=== PATIENT | female | born 1970 | race American Indian/Alaskan Native ===

== ENCOUNTER 2021-07-29 11:16 | Inpatient (IN) | payer SELFPAY ==
--- NOTE | 2021-07-29 11:39 | Emergency Department Report ---
ED Chest Pain HPI - General Chief Complaint: Chest Pain Stated Complaint: Chest pain Time Seen by Provider: 07/29/21 11:23 Source: EMS Mode of arrival: Stretcher Limitations: No Limitations - History of Present Illness Initial Comments: 50-year-old female with no significant past medical history presents to the hospital complaining of left upper chest pain since 10 AM. Patient states the pain is a constant pressure worse with movement and deep inspiration. Positive associated shortness of breath and nausea without vomiting or diaphoresis. Patient has pain radiation to her back. At onset pain rated 8/10 intensity the pain is currently 4/10 intensity after receiving aspirin, nitroglycerin x2, and having a nitroglycerin paste placed on her chest wall by EMS. Patient is not smoke cigarettes and denies drug abuse including cocaine. Her brother had a heart attack at the age of 46. Her grandfather of a heart attack. She denies history of DVT/PE, control pill/hormone use, leg pain, or recent travel. Severity scale (0 -10): 4 - Related Data Allergies Allergy/AdvReac Type Severity Reaction Status Date / Time No Known Allergies Allergy Unverified 07/29/21 11:49 Heart Score - HEART Score History: Moderately suspicious EKG: Non-specific Age: 45-65 Risk factors: 1-2 risk factors Troponin: < normal limit HEART Score: 4 - EKG Read Time Time EKG Completed: 11:43 EKG Read Time: 11:49 ED Review of Systems ROS: Stated complaint: Chest pain Other details as noted in HPI Comment: All other systems reviewed and negative ED Physical Exam - General Limitations: No Limitations - Other Other exam information: General: No acute distress Head: Atraumatic Eyes: normal appearance ENT: Moist mucous membranes Neck: Normal appearance, no midline tenderness Chest: Clear to auscultation bilaterally, left upper chest wall nontender CV: Regular rate and rhythm Abdomen: Soft, normal bowel sounds, nontender, nondistended, no rebound or guar ding Back: Normal inspection Extremity: Normal inspection, full range of motion, no calf tenderness or leg edema Neuro: Alert O x 3, no facial asymmetry, speech clear, no gross motor sensory deficit Psych: Appropriate behavior Skin: No rash ED Course Vital Signs 07/29/21 07/29/21 11:17 11:32 Temperature 98.2 F 98.2 F Pulse Rate 87 77 Respiratory 16 16 Rate Blood Pressure 133/88 Blood Pressure 134/80 [Right] O2 Sat by Pulse 100 99 Oximetry - Reevaluation(s) Reevaluation #1: 07/29/21 13:46 pt does report feeling better, Nitro paste is still on chest wall OSIEL score - Osiel Score Age > 65: (0) No ED Medical Decision Making - Lab Data Result diagrams: 07/29/21 11:40 07/29/21 11:40 Lab Results 07/29/21 07/29/21 07/29/21 Range/Units 11:40 11:40 11:40 WBC 4.3 L (4.5-11.0) K/mm3 RBC 4.33 (3.65-5.03) M/mm3 Hgb 12.1 (10.1-14.3) gm/dl Hct 37.1 (30.3-42.9) % MCV 86 (79-97) fl MCH 28 (28-32) pg MCHC 33 (30-34) % RDW 12.7 L (13.2-15.2) % Plt Count 257 (140-440) K/mm3 Lymph % (Auto) 29.8 (13.4-35.0) % Hyde % (Auto) 10.6 H (0.0-7.3) % Eos % (Auto) 1.4 (0.0-4.3) % Baso % (Auto) 1.0 (0.0-1.8) % Lymph # (Auto) 1.3 (1.2-5.4) K/mm3 [place] # (Auto) 0.5 (0.0-0.8) K/mm3 Eos # (Auto) 0.1 (0.0-0.4) K/mm3 Baso # (Auto) 0.0 (0.0-0.1) K/mm3 Seg Neutrophils % 57.2 (40.0-70.0) % Seg Neutrophils # 2.4 (1.8-7.7) K/mm3 PT 13.1 (12.2-14.9) Sec. INR 0.89 (0.87-1.13) Sodium 137 (137-145) mmol/L Potassium 4.1 (3.6-5.0) mmol/L Chloride 100.6 (98-107) mmol/L Carbon Dioxide 26 (22-30) mmol/L Anion Gap 15 mmol/L BUN 9 (7-17) mg/dL Creatinine 0.6 (0.6-1.2) mg/dL Estimated GFR > 60 ml/min BUN/Creatinine Ratio 15 % Glucose 111 H (65-100) mg/dL Calcium 8.9 (8.4-10.2) mg/dL Total Bilirubin 0.30 (0.1-1.2) mg/dL AST 10 (5-40) units/L ALT 8 (7-56) units/L Alkaline Phosphatase 47 (35-129) units/L Troponin T 0.020 (0.00-0.029) ng/mL Total Protein 7.5 (6.3-8.2) g/dL Albumin 4.4 (3.9-5) g/dL Albumin/Globulin Ratio 1.4 % HCG, Qual (Negative) 07/29/21 Range/Units 11:40 WBC (4.5-11.0) K/mm3 RBC (3.65-5.03) M/mm3 Hgb (10.1-14.3) gm/dl Hct (30.3-42.9) % MCV (79-97) fl MCH (28-32) pg MCHC (30-34) % RDW (13.2-15.2) % Plt Count (140-440) K/mm3 Lymph % (Auto) (13.4-35.0) % Hyde % (Auto) (0.0-7.3) % Eos % (Auto) (0.0-4.3) % Baso % (Auto) (0.0-1.8) % Lymph # (Auto) (1.2-5.4) K/mm3 Hyde # (Auto) (0.0-0.8) K/mm3 Eos # (Auto) (0.0-0.4) K/mm3 Baso # (Auto) (0.0-0.1) K/mm3 Seg Neutrophils % (40.0-70.0) % Seg Neutrophils # (1.8-7.7) K/mm3 PT (12.2-14.9) Sec. INR (0.87-1.13) Sodium (137-145) mmol/L Potassium (3.6-5.0) mmol/L Chloride (98-107) mmol/L Carbon Dioxide (22-30) mmol/L Anion Gap mmol/L BUN (7-17) mg/dL Creatinine (0.6-1.2) mg/dL Estimated GFR ml/min BUN/Creatinine Ratio % Glucose (65-100) mg/dL Calcium (8.4-10.2) mg/dL Total Bilirubin (0.1-1.2) mg/dL AST (5-40) units/L ALT (7-56) units/L Alkaline Phosphatase (35-129) units/L Troponin T (0.00-0.029) ng/mL Total Protein (6.3-8.2) g/dL Albumin (3.9-5) g/dL Albumin/Globulin Ratio % HCG, Qual Negative (Negative) - EKG Data -: EKG Interpreted by Me EKG shows normal: sinus rhythm, intervals (Normal MI and QTc interval), QRS complexes (Normal QRS duration), ST-T waves (Nonspecific T wave abnormalities in anterior leads) Rate: normal - EKG Data When compared to previous EKG there are: previous EKG unavailable - Radiology Data Radiology results: report reviewed CHEST 1 VIEW INDICATION / CLINICAL INFORMATION: Chest Pain. FINDINGS: SUPPORT DEVICES: None. HEART / MEDIASTINUM: No significant abnormality. LUNGS / PLEURA: No significant pulmonary or pleural abnormality. No pn eumothorax. ADDITIONAL FINDINGS: Exam limited by overlying brassiere. IMPRESSION: 1. No acute findings. Critical care attestation.: If time is entered above; I have spent that time in minutes in the direct care of this critically ill patient, excluding procedure time. 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) Condition: Undetermined Instructions: Nonspecific Chest Pain, Adult Time of Disposition: 13:47 (admission dr Fernandez) Medical Decision Making - Lab Data Result Diagrams: 07/29/21 11:40 07/29/21 11:40 - MDM DVT Risk Factors: denies: Cast, Recent Orthopedic Procedure, Cancer, Recent Surgery-Other, Bedridden, Paralysis, Prior DVT/PE, Leg Swelling - PERC (PE Decision Criteria) Heart Rate < 100: (0) No O2 Sat on Room Air > .94%: (0) No No Prior History pf DVT/PE: (0) No No Recent Trauma or Surgery: (0) No Hemoptysis: (0) No No Exogenous Estrogen: (0) No No Clinical Signs Suggesting DVT: (0) No Age < 50: No
[2021-07-29 12:05] LABS: Eosinophils # (Auto) 0.1 K/mm3 (0.0-0.4); Eosinophils % (Auto) 1.4 % (0.0-4.3); Hematocrit 37.1 % (30.3-42.9); Hemoglobin 12.1 gm/dl (10.1-14.3); Lymphocytes # (Auto) 1.3 K/mm3 (1.2-5.4); Lymphocytes % (Auto) 29.8 % (13.4-35.0); Mean Corpuscular HGB Conc 33 % (30-34); Mean Corpuscular Volume 86 fl (79-97); Monocytes # (Auto) 0.5 K/mm3 (0.0-0.8); Monocytes % (Auto) 10.6 % (0.0-7.3); Platelet Count 257 K/mm3 (140-440); Red Blood Count 4.33 M/mm3 (3.65-5.03); Red Cell Distribution Width 12.7 % (13.2-15.2)
[2021-07-29 12:16] LABS: Alanine Aminotransferase 8 units/L (7-56); Albumin 4.4 g/dL (3.9-5); Blood Urea Nitrogen 9 mg/dL (7-17); Calcium 8.9 mg/dL (8.4-10.2); Hemolysis Index 8
[2021-07-29 12:17] LABS: INR 0.89 (0.87-1.13)
--- NOTE | 2021-07-29 12:20 | XRay Report ---
CHEST 1 VIEW INDICATION / CLINICAL INFORMATION: Chest Pain. FINDINGS: SUPPORT DEVICES: None. HEART / MEDIASTINUM: No significant abnormality. LUNGS / PLEURA: No significant pulmonary or pleural abnormality. No pneumothorax. ADDITIONAL FINDINGS: Exam limited by overlying brassiere. IMPRESSION: 1. No acute findings. Signer Name: Dao Noguera MD Signed: 07/29/2021 12:16 PM Workstation Name: [id number]
[2021-07-29 12:26] LABS: BUN/Creatinine Ratio 15
[2021-07-29 15:57] LABS: Chol/HDL Ratio 3.62 %
[2021-07-29] MEDS ORDERED: METOCLOPRAMIDE 10 MG/2 ML INJ IV PRN (16:58)
[2021-07-29] MEDS ORDERED: ACETAMINOPHEN 325 MG TAB PO PRN ×2 (16:58→20:23)
[2021-07-29] MEDS ORDERED: HYDROmorphone 1 MG/1 ML INJ IV PRN (16:58)
[2021-07-29] MEDS ORDERED: ONDANSETRON 4 MG/2 ML INJ IV PRN ×2 (16:58→20:23)
[2021-07-29] MEDS: oxyCODONE /ACETAMINOPHEN 5-325MG TAB PO PRN (18:47)
[2021-07-29] MEDS: HEPARIN 5,000 UNIT/1 ML VIAL SUB-Q SCH ×2 (21:39→23:26)
[2021-07-29] MEDS: FAMOTIDINE 20 MG/2 ML INJ IV SCH (21:39)
--- NOTE | 2021-07-30 07:10 | History and Physical Report ---
History of Present Illness Date of examination: 07/29/21 Date of admission: 07/29/21 13:47 Chief complaint: Chest pain since 10 AM History of present illness: 50-year-old female with no significant past medical history comes in for left- sided chest pain since 10 AM. Patient states her chest pain is about 4-6 on a scale of 1-10. Chest pain is retrosternal. Nonradiating. No diaphoresis. No shortness of breath. Initially chest pain was 8 on a scale of 1-10. Improved to 4/10 with nitroglycerin. Patient has a strong family history of coronary artery disease. Her and her brother has coronary artery disease with stent. Also her grandfather has history of OH in the past. Patient is not on any medications. Past History Past Medical History: No medical history Past Surgical History: No surgical history Social history: lives with family, full code Family history: CAD, hypertension Review of Systems ROS: Constitutional no weight loss or weight gain no fever or chills HEENT no sore throat no post nasal drip no diplopia Neck no neck stiffness no lymph gland enlargement Chest and lungs no shortness of breath cough or wheezing CVS no chest pain no diaphoresis no palpitations GI no nausea no vomiting no diarrhea Genitourinary system no dysuria no flank pain Musculoskeletal system no muscle pains no joint pains [employer] no syncope no seizures Skin no rash no itching Psychiatric no depression no homicidal or suicidal tendencies Hematologic no lymphedema or bruising Endocrine no polydipsia no polyuria no cold intolerance no heat intolerance Past History Social history: full code Medications and Allergies Allergies Allergy/AdvReac Type Severity Reaction Status Date / Time No Known Allergies Allergy Unverified 07/29/21 11:49 Home Medications Medication Instructions Recorded Confirmed Last Taken Type No Known Home Medications [No 07/29/21 07/29/21 Unknown History Reported Home Medications] Active Meds: Active Medications Acetaminophen (Acetaminophen 325 Mg Tab) 650 mg PO Q4H PRN PRN Reason: Pain MILD(1-3)/Fever >100.5/CHO Last Admin: 07/29/21 17:12 Dose: 650 mg Documented by: Famotidine (Famotidine 20 Mg/2 Ml Inj) 20 mg IV BID MOHSEN Last Admin: 07/29/21 21:39 Dose: Not Given Documented by: Heparin Sodium (Porcine) (Heparin 5,000 Unit/1 Ml Vial) 5,000 unit SUB-Q Q12HR [facility] Last Admin: 07/29/21 23:26 Dose: 5,000 unit Documented by: Hydromorphone HCl (Hydromorphone 1 Mg/1 Ml Inj) 0.5 mg IV Q3H PRN PRN Reason: Pain , Severe (7-10) Metoclopramide HCl (Metoclopramide 10 Mg/2 Ml Inj) 10 mg IV Q6H PRN PRN Reason: Nausea And Vomiting Ondansetron HCl (Ondansetron 4 Mg/2 Ml Inj) 4 mg IV Q8H PRN PRN Reason: Nausea And Vomiting Oxycodone/Acetaminophen (Oxycodone /Acetaminophen 5-325mg Tab) 1 tab PO Q6H PRN PRN Reason: Pain, Moderate (4-6) Last Admin: 07/29/21 18:47 Dose: 1 tab Documented by: Sodium Chloride (Sodium Chloride 0.9% 10 Ml Flush Syringe) 10 ml IV BID [facility] Last Admin: 07/29/21 21:41 Dose: Not Given Documented by: Sodium Chloride (Sodium Chloride 0.9% 10 Ml Flush Syringe) 10 ml IV PRN PRN PRN Reason: LINE FLUSH Sodium Chloride (Sodium Chloride 0.9% 10 Ml Flush Syringe) 10 ml IV BID [facility] Last Admin: 07/29/21 21:42 Dose: Not Given Documented by: Exam - Constitutional Vitals: Temp Pulse Resp BP Pulse Ox 98.6 F 94 H 12 108/73 98 07/30/21 03:38 07/30/21 03:38 07/30/21 03:38 07/30/21 03:38 07/30/21 03:38 General appearance: Present: no acute distress, well-nourished - EENT Eyes: Present: PERRL ENT: hearing intact, clear oral mucosa - Neck Neck: Present: supple, normal ROM - Respiratory Respiratory effort: normal Respiratory: bilateral: CTA - Cardiovascular Heart rate: 78 Rhythm: regular Heart Sounds: Present: S1 & S2. Absent: rub, click - Extremities Extremities: pulses symmetrical, No edema Peripheral Pulses: within normal limits - Abdominal General gastrointestinal: Present: soft, non-tender, non-distended, normal bowel sounds Female genitourinary: Present: normal - Integumentary Integumentary: Present: clear, warm, dry - Musculoskeletal Musculoskeletal: gait normal, strength equal bilaterally - Psychiatric Psychiatric: appropriate mood/affect, intact judgment & insight - Neurologic Neurologic: CNII-XII intact, moves all extremities HEART Score - HEART Score EKG: Non-specific Age: 45-65 Risk factors: 1-2 risk factors Troponin: Troponin T 0.189 ng/mL (0.00-0.029) H* D 07/29/21 23:03 Troponin: < normal limit - Critical Actions Critical Actions: 4-6 pts:12-16.6% risk of adverse cardiac event. Should be admitted Results - Labs CBC & Chem 7: 07/29/21 11:40 07/29/21 11:40 Labs: Laboratory Last Values WBC 4.3 K/mm3 (4.5-11.0) L 07/29/21 11:40 RBC 4.33 M/mm3 (3.65-5.03) 07/29/21 11:40 Hgb 12.1 gm/dl (10.1-14.3) 07/29/21 11:40 Hct 37.1 % (30.3-42.9) 07/29/21 11:40 MCV 86 fl (79-97) 07/29/21 11:40 MCH 28 pg (28-32) 07/29/21 11:40 MCHC 33 % (30-34) 07/29/21 11:40 RDW 12.7 % (13.2-15.2) L 07/29/21 11:40 Plt Count 257 K/mm3 (140-440) 07/29/21 11:40 Lymph % (Auto) 29.8 % (13.4-35.0) 07/29/21 11:40 [place] % (Auto) 10.6 % (0.0-7.3) H 07/29/21 11:40 Eos % (Auto) 1.4 % (0.0-4.3) 07/29/21 11:40 Baso % (Auto) 1.0 % (0.0-1.8) 07/29/21 11:40 Lymph # (Auto) 1.3 K/mm3 (1.2-5.4) 07/29/21 11:40 [place] # (Auto) 0.5 K/mm3 (0.0-0.8) 07/29/21 11:40 Eos # (Auto) 0.1 K/mm3 (0.0-0.4) 07/29/21 11:40 Baso # (Auto) 0.0 K/mm3 (0.0-0.1) 07/29/21 11:40 Seg Neutrophils % 57.2 % (40.0-70.0) 07/29/21 11:40 Seg Neutrophils # 2.4 K/mm3 (1.8-7.7) 07/29/21 11:40 PT 13.1 Sec. (12.2-14.9) 07/29/21 11:40 INR 0.89 (0.87-1.13) 07/29/21 11:40 Sodium 137 mmol/L (137-145) 07/29/21 11:40 Potassium 4.1 mmol/L (3.6-5.0) 07/29/21 11:40 Chloride 100.6 mmol/L (98-107) 07/29/21 11:40 Carbon Dioxide 26 mmol/L (22-30) 07/29/21 11:40 Anion Gap 15 mmol/L 07/29/21 11:40 BUN 9 mg/dL (7-17) 07/29/21 11:40 Creatinine 0.6 mg/dL (0.6-1.2) 07/29/21 11:40 Estimated GFR > 60 ml/min 07/29/21 11:40 BUN/Creatinine Ratio 15 % 07/29/21 11:40 Glucose 111 mg/dL (65-100) H 07/29/21 11:40 Calcium 8.9 mg/dL (8.4-10.2) 07/29/21 11:40 Total Bilirubin 0.30 mg/dL (0.1-1.2) 07/29/21 11:40 AST 10 units/L (5-40) 07/29/21 11:40 ALT 8 units/L (7-56) 07/29/21 11:40 Alkaline Phosphatase 47 units/L (35-129) 07/29/21 11:40 Troponin T 0.189 ng/mL (0.00-0.029) H* D 07/29/21 23:03 Total Protein 7.5 g/dL (6.3-8.2) 07/29/21 11:40 Albumin 4.4 g/dL (3.9-5) 07/29/21 11:40 Albumin/Globulin Ratio 1.4 % 07/29/21 11:40 Triglycerides 77 mg/dL (2-149) 07/29/21 14:48 Cholesterol 192 mg/dL (50-199) 07/29/21 14:48 LDL Cholesterol Direct 125 mg/dL (50-130) 07/29/21 14:48 HDL Cholesterol 53 mg/dL (40-59) 07/29/21 14:48 Cholesterol/HDL Ratio 3.62 % 07/29/21 14:48 HCG, Qual Negative (Negative) 07/29/21 11:40 Short CBC 07/29/21 Range/Units 11:40 WBC 4.3 L (4.5-11.0) K/mm3 Hgb 12.1 (10.1-14.3) gm/dl Hct 37.1 (30.3-42.9) % Plt Count 257 (140-440) K/mm3 BMP 07/29/21 11:40 Sodium 137 Potassium 4.1 Chloride 100.6 Carbon Dioxide 26 BUN 9 Creatinine 0.6 Glucose 111 H Calcium 8.9 Cardiac Enzymes 07/29/21 07/29/21 07/29/21 Range/Units 11:40 14:48 17:52 Troponin T 0.020 0.279 H* D 0.265 H* (0.00-0.029) ng/mL 07/29/21 Range/Units 23:03 Troponin T 0.189 H* D (0.00-0.029) ng/mL Liver Function 07/29/21 Range/Units 11:40 Total Bilirubin 0.30 (0.1-1.2) mg/dL AST 10 (5-40) units/L ALT 8 (7-56) units/L Alkaline Phosphatase 47 (35-129) units/L Albumin 4.4 (3.9-5) g/dL - Imaging and Cardiology EKG: report reviewed Chest x-ray: report reviewed (No acute findings) Imaging and Cardiology: EKG Sinus rhythm Heart rate of 69/min Nonspecific T wave abnormalities in the anterior leads. Assessment and Plan Advance Directives: Yes (Full code) VTE prophylaxis?: Chemical Plan of care discussed with patient/family: Yes - Patient Problems (1) Acute coronary syndrome Current Visit: Yes Status: Acute Plan to address problem: Serial troponins Lexiscan in the morning GERD and costochondritis in the differential diagnosis (2) DVT prophylaxis Current Visit: Yes Status: Acute Plan to address problem: On heparin and GI prophylaxis (3) Advance directive discussed with patient Current Visit: Yes Status: Acute Plan to address problem: Disease education conducted: Care plan discussed, prognosis discussed, patient is full code and patient acknowledges understanding and agrees with care plan. +30 minutes.
[2021-07-30] MEDS ORDERED: REGADENOSON 0.4 MG/5 ML INJ IV ONE (08:05)
[2021-07-30] MEDS: HEPARIN 5,000 UNIT/1 ML VIAL SUB-Q SCH ×2 (09:21→22:31)
[2021-07-30 09:23] LABS: Basophils % (Auto) 0.7 % (0.0-1.8); Eosinophils # (Auto) 0.1 K/mm3 (0.0-0.4); Eosinophils % (Auto) 1.2 % (0.0-4.3); Hematocrit 36.6 % (30.3-42.9); Hemoglobin 11.9 gm/dl (10.1-14.3); Lymphocytes # (Auto) 1.7 K/mm3 (1.2-5.4); Lymphocytes % (Auto) 27.6 % (13.4-35.0); Mean Corpuscular HGB Conc 32 % (30-34); Mean Corpuscular Volume 85 fl (79-97); Monocytes # (Auto) 0.7 K/mm3 (0.0-0.8); Monocytes % (Auto) 10.7 % (0.0-7.3); Platelet Count 246 K/mm3 (140-440); Red Blood Count 4.29 M/mm3 (3.65-5.03)
[2021-07-30] MEDS: FAMOTIDINE 20 MG/2 ML INJ IV SCH (09:23)
--- NOTE | 2021-07-30 09:51 | Consultation ---
History of Present Illness Consult date: 07/30/21 Consult reason: chest pain History of present illness: Impression SSCP, intetmittent dating back to last week c/w angina Troponin elevation c/w CAD, NSTEMI ECG NSR nonspecific inferior and lateral changes, minimal FH CAD, brother recently had stents LDL 125 Plan cancelled stress test advise diagnostic cardiac cath to evaluate symptoms, based on presentation high prob for CAD. ASA, statin, BB for now, she is asymptomatic at present Past History Past Medical History: No medical history Past Surgical History: No surgical history Social history: full code. denies: smoking Family history: CAD, hypertension Medications and Allergies Allergies Allergy/AdvReac Type Severity Reaction Status Date / Time No Known Allergies Allergy Unverified 07/29/21 11:49 Home Medications Medication Instructions Recorded Confirmed Last Taken Type No Known Home Medications [No 07/29/21 07/29/21 Unknown History Reported Home Medications] Active Meds: Active Medications Acetaminophen (Acetaminophen 325 Mg Tab) 650 mg PO Q4H PRN PRN Reason: Pain MILD(1-3)/Fever >100.5/CHO Last Admin: 07/29/21 17:12 Dose: 650 mg Documented by: Famotidine (Famotidine 20 Mg/2 Ml Inj) 20 mg IV BID [facility] Last Admin: 07/30/21 09:23 Dose: Not Given Documented by: Heparin Sodium (Porcine) (Heparin 5,000 Unit/1 Ml Vial) 5,000 unit SUB-Q Q12HR [facility] Last Admin: 07/30/21 09:21 Dose: 5,000 unit Documented by: Hydromorphone HCl (Hydromorphone 1 Mg/1 Ml Inj) 0.5 mg IV Q3H PRN PRN Reason: Pain , Severe (7-10) Metoclopramide HCl (Metoclopramide 10 Mg/2 Ml Inj) 10 mg IV Q6H PRN PRN Reason: Nausea And Vomiting Ondansetron HCl (Ondansetron 4 Mg/2 Ml Inj) 4 mg IV Q8H PRN PRN Reason: Nausea And Vomiting Oxycodone/Acetaminophen (Oxycodone /Acetaminophen 5-325mg Tab) 1 tab PO Q6H PRN PRN Reason: Pain, Moderate (4-6) Last Admin: 07/29/21 18:47 Dose: 1 tab Documented by: Sodium Chloride (Sodium Chloride 0.9% 10 Ml Flush Syringe) 10 ml IV PRN PRN PRN Reason: LINE FLUSH Sodium Chloride (Sodium Chloride 0.9% 10 Ml Flush Syringe) 10 ml IV BID [facility] Last Admin: 07/30/21 09:23 Dose: Not Given Documented by: Physical Examination Vital Signs Temp Pulse Resp BP Pulse Ox 98.2 F 87 16 134/80 100 07/29/21 11:17 07/29/21 11:17 07/29/21 11:17 07/29/21 11:17 07/29/21 11:17 General appearance: no acute distress HEENT: Positive: PERRL Neck: Positive: neck supple Cardiac: Positive: Reg Rate and Rhythm, S1/S2 Lungs: Positive: Normal Exam Neuro: Positive: Grossly Intact Abdomen: Positive: Unremarkable. Negative: Pulsations/Bruits Extremities: Absent: edema Results 07/30/21 08:57 07/29/21 11:40 Cardiac Enzymes 07/29/21 Range/Units 11:40 AST 10 (5-40) units/L Coagulation 07/29/21 Range/Units 11:40 PT 13.1 (12.2-14.9) Sec. INR 0.89 (0.87-1.13) Lipids 07/29/21 Range/Units 14:48 Triglycerides 77 (2-149) mg/dL Cholesterol 192 (50-199) mg/dL HDL Cholesterol 53 (40-59) mg/dL Cholesterol/HDL Ratio 3.62 % CBC 07/29/21 07/30/21 Range/Units 11:40 08:57 WBC 4.3 L 6.3 (4.5-11.0) K/mm3 RBC 4.33 4.29 (3.65-5.03) M/mm3 Hgb 12.1 11.9 (10.1-14.3) gm/dl Hct 37.1 36.6 (30.3-42.9) % Plt Count 257 246 (140-440) K/mm3 Lymph # (Auto) 1.3 1.7 (1.2-5.4) K/mm3 [place] # (Auto) 0.5 0.7 (0.0-0.8) K/mm3 Eos # (Auto) 0.1 0.1 (0.0-0.4) K/mm3 Baso # (Auto) 0.0 0.0 (0.0-0.1) K/mm3 Comprehensive Metabolic Panel 07/29/21 Range/Units 11:40 Sodium 137 (137-145) mmol/L Potassium 4.1 (3.6-5.0) mmol/L Chloride 100.6 (98-107) mmol/L Carbon Dioxide 26 (22-30) mmol/L BUN 9 (7-17) mg/dL Creatinine 0.6 (0.6-1.2) mg/dL Glucose 111 H (65-100) mg/dL Calcium 8.9 (8.4-10.2) mg/dL AST 10 (5-40) units/L ALT 8 (7-56) units/L Alkaline Phosphatase 47 (35-129) units/L Total Protein 7.5 (6.3-8.2) g/dL Albumin 4.4 (3.9-5) g/dL EKG interpretations - Telemetry EKG Rhythm: Sinus Rhythm Repolarization changes or abnormalities: nonspecific abnormality, ST segment, and/or T wave
[2021-07-30] MEDS: ASPIRIN 81 MG TAB CHEW PO SCH (10:18)
[2021-07-30] MEDS: METOPROLOL SUCCINATE XL 25 MG TAB PO SCH (10:18)
[2021-07-30 10:34] LABS: Alanine Aminotransferase 8 units/L (7-56); Blood Urea Nitrogen 7 mg/dL (7-17); Calcium 8.9 mg/dL (8.4-10.2); Hemolysis Index 8
[2021-07-30 10:48] LABS: BUN/Creatinine Ratio 12
--- NOTE | 2021-07-30 11:44 | Progress Note ---
Assessment and Plan Assessment and plan: #NSTEMI #Elevated troponin -troponin 0.279 -> 0.265 -> 0.189; downtrending -ASA + atorvastatin and metoprolol 25mg BID -lipid panel & A1C ordered -TTE pending -Cardiology consulted, assistance appreciated -plan for Cath on Monday Disposition Plan: Home Total Time Spent with Patient (Minutes): 20 minutes History Interval history: No acute events overnight. Patient reports that chest pain has resolved. No complaints at this time. Hospitalist Physical - Physical exam Narrative exam: GENERAL: Well-developed well-nourished. Sitting up in bed, no acute distress. HEENT: Normocephalic. Atraumatic. CHEST/LUNGS: CTAB on room air HEART/CARDIOVASCULAR: RRR. No murmur, rubs or gallops appreciated. ABDOMEN: +BS. NT/ND. SKIN: No rashes noted. NEURO: No focal motor deficit. Follows all commands. EXTREMITIES: No cyanosis, clubbing or edema. PSYCH: Cooperative. - Constitutional Vitals: Temp Pulse Resp BP Pulse Ox 98.6 F 92 H 20 102/66 93 07/30/21 08:01 07/30/21 10:11 07/30/21 08:01 07/30/21 08:01 07/30/21 08:01 General appearance: Present: no acute distress HEART Score - HEART Score EKG: Non-specific Age: 45-65 Risk factors: 1-2 risk factors Troponin: Troponin T 0.198 ng/mL (0.00-0.029) H* 07/30/21 08:57 Troponin: < normal limit - Critical Actions Critical Actions: 4-6 pts:12-16.6% risk of adverse cardiac event. Should be admitted Results - Labs CBC & Chem 7: 07/30/21 08:57 07/30/21 08:57 Labs: Laboratory Last Values WBC 6.3 K/mm3 (4.5-11.0) 07/30/21 08:57 RBC 4.29 M/mm3 (3.65-5.03) 07/30/21 08:57 Hgb 11.9 gm/dl (10.1-14.3) 07/30/21 08:57 Hct 36.6 % (30.3-42.9) 07/30/21 08:57 MCV 85 fl (79-97) 07/30/21 08:57 MCH 28 pg (28-32) 07/30/21 08:57 MCHC 32 % (30-34) 07/30/21 08:57 RDW 13.0 % (13.2-15.2) L 07/30/21 08:57 Plt Count 246 K/mm3 (140-440) 07/30/21 08:57 Lymph % (Auto) 27.6 % (13.4-35.0) 07/30/21 08:57 [place] % (Auto) 10.7 % (0.0-7.3) H 07/30/21 08:57 Eos % (Auto) 1.2 % (0.0-4.3) 07/30/21 08:57 Baso % (Auto) 0.7 % (0.0-1.8) 07/30/21 08:57 Lymph # (Auto) 1.7 K/mm3 (1.2-5.4) 07/30/21 08:57 [place] # (Auto) 0.7 K/mm3 (0.0-0.8) 07/30/21 08:57 Eos # (Auto) 0.1 K/mm3 (0.0-0.4) 07/30/21 08:57 Baso # (Auto) 0.0 K/mm3 (0.0-0.1) 07/30/21 08:57 Seg Neutrophils % 59.8 % (40.0-70.0) 07/30/21 08:57 Seg Neutrophils # 3.8 K/mm3 (1.8-7.7) 07/30/21 08:57 PT 13.1 Sec. (12.2-14.9) 07/29/21 11:40 INR 0.89 (0.87-1.13) 07/29/21 11:40 Sodium 136 mmol/L (137-145) L 07/30/21 08:57 Potassium 4.1 mmol/L (3.6-5.0) 07/30/21 08:57 Chloride 100.4 mmol/L (98-107) 07/30/21 08:57 Carbon Dioxide 23 mmol/L (22-30) 07/30/21 08:57 Anion Gap 17 mmol/L 07/30/21 08:57 BUN 7 mg/dL (7-17) 07/30/21 08:57 Creatinine 0.6 mg/dL (0.6-1.2) 07/30/21 08:57 Estimated GFR > 60 ml/min 07/30/21 08:57 BUN/Creatinine Ratio 12 % 07/30/21 08:57 Glucose 89 mg/dL (65-100) 07/30/21 08:57 Calcium 8.9 mg/dL (8.4-10.2) 07/30/21 08:57 Total Bilirubin 0.40 mg/dL (0.1-1.2) 07/30/21 08:57 AST 20 units/L (5-40) 07/30/21 08:57 ALT 8 units/L (7-56) 07/30/21 08:57 Alkaline Phosphatase 45 units/L (35-129) 07/30/21 08:57 Troponin T 0.198 ng/mL (0.00-0.029) H* 07/30/21 08:57 Total Protein 7.1 g/dL (6.3-8.2) 07/30/21 08:57 Albumin 4.0 g/dL (3.9-5) 07/30/21 08:57 Albumin/Globulin Ratio 1.3 % 07/30/21 08:57 Triglycerides 77 mg/dL (2-149) 07/29/21 14:48 Cholesterol 192 mg/dL (50-199) 07/29/21 14:48 LDL Cholesterol Direct 125 mg/dL (50-130) 07/29/21 14:48 HDL Cholesterol 53 mg/dL (40-59) 07/29/21 14:48 Cholesterol/HDL Ratio 3.62 % 07/29/21 14:48 HCG, Qual Negative (Negative) 07/29/21 11:40 Active Medications - Current Medications Current Medications: Generic Name Dose Route Start Last Admin Trade Name Freq PRN Reason Stop Dose Admin Acetaminophen 650 mg 07/29/21 16:58 07/29/21 17:12 Acetaminophen 325 Mg Tab PO 650 mg Q4H PRN Administration Pain MILD(1-3)/Fever >100.5/CHO Aspirin 81 mg 07/30/21 10:00 07/30/21 10:18 Aspirin 81 Mg Tab Chew PO 81 mg QDAY MOHSEN Administration Atorvastatin Calcium 40 mg 07/30/21 22:00 Atorvastatin 40 Mg Tab PO QHS MOHSEN Famotidine 20 mg 07/29/21 22:00 07/30/21 09:23 Famotidine 20 Mg/2 Ml Inj IV Not Given BID [facility] Heparin Sodium (Porcine) 5,000 unit 07/29/21 22:00 07/30/21 09:21 Heparin 5,000 Unit/1 Ml Vial SUB-Q 5,000 unit Q12HR [facility] Administration Hydromorphone HCl 0.5 mg 07/29/21 16:58 Hydromorphone 1 Mg/1 Ml Inj IV Q3H PRN Pain , Severe (7-10) Metoclopramide HCl 10 mg 07/29/21 16:58 Metoclopramide 10 Mg/2 Ml Inj IV Q6H PRN Nausea And Vomiting Metoprolol Succinate 25 mg 07/30/21 10:00 07/30/21 10:18 Metoprolol Succinate Xl 25 Mg Tab PO 25 mg QDAY [facility] Administration Ondansetron HCl 4 mg 07/29/21 16:58 Ondansetron 4 Mg/2 Ml Inj IV Q8H PRN Nausea And Vomiting Oxycodone/Acetaminophen 1 tab 07/29/21 16:58 07/29/21 18:47 Oxycodone /Acetaminophen 5-325mg Tab PO 1 tab Q6H PRN Administration Pain, Moderate (4-6) Sodium Chloride 10 ml 07/29/21 16:58 Sodium Chloride 0.9% 10 Ml Flush Syringe IV PRN PRN LINE FLUSH Sodium Chloride 10 ml 07/29/21 22:00 07/30/21 09:23 Sodium Chloride 0.9% 10 Ml Flush Syringe IV Not Given BID [facility]
[2021-07-30] MEDS: FAMOTIDINE 20 MG TAB PO SCH (22:31)
--- NOTE | 2021-07-31 08:11 | Progress Note ---
Assessment and Plan Assessment and plan: #NSTEMI #Elevated troponin -troponin 0.279 -> 0.265 -> 0.189 -ASA + atorvastatin and metoprolol 25mg BID -lipid panel & A1C ordered -TTE: LVEF 60%, small segmental apical inferoseptal hypokinesis -Cardiology following, assistance appreciated -plan for Cath on Monday Disposition Plan: continue medical management Total Time Spent with Patient (Minutes): 20 minutes History Interval history: No acute events overnight. Not having chest pain. Hospitalist Physical - Physical exam Narrative exam: GENERAL: Well-developed well-nourished. Sitting up in bed, no acute distress. CHEST/LUNGS: CTAB on room air HEART/CARDIOVASCULAR: RRR. No murmur, rubs or gallops appreciated. ABDOMEN: +BS. NT/ND. SKIN: No rashes noted. NEURO: No focal motor deficit. Follows all commands. EXTREMITIES: No cyanosis, clubbing or edema. PSYCH: Cooperative. - Constitutional Vitals: Temp Pulse Resp BP Pulse Ox 97.9 F 77 16 119/73 97 07/31/21 03:39 07/31/21 03:39 07/31/21 03:39 07/31/21 03:39 07/31/21 03:39 General appearance: Present: no acute distress HEART Score - HEART Score EKG: Non-specific Age: 45-65 Risk factors: 1-2 risk factors Troponin: Troponin T 0.198 ng/mL (0.00-0.029) H* 07/30/21 08:57 Troponin: < normal limit - Critical Actions Critical Actions: 4-6 pts:12-16.6% risk of adverse cardiac event. Should be admitted Results - Labs CBC & Chem 7: 07/30/21 08:57 07/30/21 08:57 Labs: Laboratory Last Values WBC 6.3 K/mm3 (4.5-11.0) 07/30/21 08:57 RBC 4.29 M/mm3 (3.65-5.03) 07/30/21 08:57 Hgb 11.9 gm/dl (10.1-14.3) 07/30/21 08:57 Hct 36.6 % (30.3-42.9) 07/30/21 08:57 MCV 85 fl (79-97) 07/30/21 08:57 MCH 28 pg (28-32) 07/30/21 08:57 MCHC 32 % (30-34) 07/30/21 08:57 RDW 13.0 % (13.2-15.2) L 07/30/21 08:57 Plt Count 246 K/mm3 (140-440) 07/30/21 08:57 Lymph % (Auto) 27.6 % (13.4-35.0) 07/30/21 08:57 [place] % (Auto) 10.7 % (0.0-7.3) H 07/30/21 08:57 Eos % (Auto) 1.2 % (0.0-4.3) 07/30/21 08:57 Baso % (Auto) 0.7 % (0.0-1.8) 07/30/21 08:57 Lymph # (Auto) 1.7 K/mm3 (1.2-5.4) 07/30/21 08:57 [place] # (Auto) 0.7 K/mm3 (0.0-0.8) 07/30/21 08:57 Eos # (Auto) 0.1 K/mm3 (0.0-0.4) 07/30/21 08:57 Baso # (Auto) 0.0 K/mm3 (0.0-0.1) 07/30/21 08:57 Seg Neutrophils % 59.8 % (40.0-70.0) 07/30/21 08:57 Seg Neutrophils # 3.8 K/mm3 (1.8-7.7) 07/30/21 08:57 PT 13.1 Sec. (12.2-14.9) 07/29/21 11:40 INR 0.89 (0.87-1.13) 07/29/21 11:40 Sodium 136 mmol/L (137-145) L 07/30/21 08:57 Potassium 4.1 mmol/L (3.6-5.0) 07/30/21 08:57 Chloride 100.4 mmol/L (98-107) 07/30/21 08:57 Carbon Dioxide 23 mmol/L (22-30) 07/30/21 08:57 Anion Gap 17 mmol/L 07/30/21 08:57 BUN 7 mg/dL (7-17) 07/30/21 08:57 Creatinine 0.6 mg/dL (0.6-1.2) 07/30/21 08:57 Estimated GFR > 60 ml/min 07/30/21 08:57 BUN/Creatinine Ratio 12 % 07/30/21 08:57 Glucose 89 mg/dL (65-100) 07/30/21 08:57 Calcium 8.9 mg/dL (8.4-10.2) 07/30/21 08:57 Total Bilirubin 0.40 mg/dL (0.1-1.2) 07/30/21 08:57 AST 20 units/L (5-40) 07/30/21 08:57 ALT 8 units/L (7-56) 07/30/21 08:57 Alkaline Phosphatase 45 units/L (35-129) 07/30/21 08:57 Troponin T 0.198 ng/mL (0.00-0.029) H* 07/30/21 08:57 Total Protein 7.1 g/dL (6.3-8.2) 07/30/21 08:57 Albumin 4.0 g/dL (3.9-5) 07/30/21 08:57 Albumin/Globulin Ratio 1.3 % 07/30/21 08:57 Triglycerides 77 mg/dL (2-149) 07/29/21 14:48 Cholesterol 192 mg/dL (50-199) 07/29/21 14:48 LDL Cholesterol Direct 125 mg/dL (50-130) 07/29/21 14:48 HDL Cholesterol 53 mg/dL (40-59) 07/29/21 14:48 Cholesterol/HDL Ratio 3.62 % 07/29/21 14:48 HCG, Qual Negative (Negative) 07/29/21 11:40 [place]/IV: Voiding Method Toilet Active Medications - Current Medications Current Medications: Generic Name Dose Route Start Last Admin Trade Name Freq PRN Reason Stop Dose Admin Acetaminophen 650 mg 07/29/21 16:58 07/29/21 17:12 Acetaminophen 325 Mg Tab PO 650 mg Q4H PRN Administration Pain MILD(1-3)/Fever >100.5/CHO Aspirin 81 mg 07/30/21 10:00 07/30/21 10:18 Aspirin 81 Mg Tab Chew PO 81 mg QDAY MOHSEN Administration Atorvastatin Calcium 40 mg 07/30/21 22:00 07/30/21 22:31 Atorvastatin 40 Mg Tab PO 40 mg QHS MOHSEN Administration Famotidine 20 mg 07/30/21 22:00 07/30/21 22:31 Famotidine 20 Mg Tab PO 20 mg BID MOHSEN Administration Heparin Sodium (Porcine) 5,000 unit 07/29/21 22:00 07/30/21 22:31 Heparin 5,000 Unit/1 Ml Vial SUB-Q 5,000 unit Q12HR MOHSEN Administration Hydromorphone HCl 0.5 mg 07/29/21 16:58 Hydromorphone 1 Mg/1 Ml Inj IV Q3H PRN Pain , Severe (7-10) Metoclopramide HCl 10 mg 07/29/21 16:58 Metoclopramide 10 Mg/2 Ml Inj IV Q6H PRN Nausea And Vomiting Metoprolol Succinate 25 mg 07/30/21 10:00 07/30/21 10:18 Metoprolol Succinate Xl 25 Mg Tab PO 25 mg QDAY MOHSEN Administration Ondansetron HCl 4 mg 07/29/21 16:58 Ondansetron 4 Mg/2 Ml Inj IV Q8H PRN Nausea And Vomiting Oxycodone/Acetaminophen 1 tab 07/29/21 16:58 07/29/21 18:47 Oxycodone /Acetaminophen 5-325mg Tab PO 1 tab Q6H PRN Administration Pain, Moderate (4-6) Sodium Chloride 10 ml 07/29/21 16:58 Sodium Chloride 0.9% 10 Ml Flush Syringe IV PRN PRN LINE FLUSH Sodium Chloride 10 ml 07/29/21 22:00 07/30/21 22:31 Sodium Chloride 0.9% 10 Ml Flush Syringe IV 10 ml BID MOHSEN Administration
[2021-07-31] MEDS: ASPIRIN 81 MG TAB CHEW PO SCH (09:05)
[2021-07-31] MEDS: METOPROLOL SUCCINATE XL 25 MG TAB PO SCH (09:05)
[2021-07-31] MEDS: HEPARIN 5,000 UNIT/1 ML VIAL SUB-Q SCH ×2 (09:05→21:21)
[2021-07-31] MEDS: FAMOTIDINE 20 MG TAB PO SCH ×2 (09:06→21:51)
--- NOTE | 2021-07-31 10:11 | Progress Note ---
Subjective Date of service: 07/31/21 Interval history: No chest pain this AM Echo Ef 55%, apical inferoseptal HK Impression Echo Ef 55% with small segmental wall motion abnl, apical inferoseptal SSCP, intetmittent dating back to last week c/w angina Troponin elevation c/w CAD, NSTEMI ECG NSR nonspecific inferior and lateral changes, minimal FH CAD, brother recently had stents LDL 125 Plan cancelled stress test advise diagnostic cardiac cath to evaluate symptoms, based on presentation high prob for CAD. ASA, statin, BB for now, she is asymptomatic at present Objective Vital Signs Temp Pulse Resp BP Pulse Ox 07/31/21 03:39 97.9 F 77 16 119/73 97 07/30/21 23:03 98.1 F 72 16 123/84 98 07/30/21 20:22 98 07/30/21 20:15 79 07/30/21 19:12 98.2 F 80 16 122/76 96 07/30/21 16:20 98.8 F 79 20 125/86 97 07/30/21 11:57 98.3 F 78 20 115/75 99 07/30/21 10:11 92 H - Physical Examination HEENT: Positive: PERRL Neck: Positive: neck supple Cardiac: Positive: Reg Rate and Rhythm, S1/S2 Lungs: Positive: Normal Exam Neuro: Positive: Grossly Intact Abdomen: Positive: Unremarkable. Negative: Pulsations/Bruits Extremities: Absent: edema - Labs and Meds Cardiac Enzymes 07/30/21 Range/Units 08:57 AST 20 (5-40) units/L Comprehensive Metabolic Panel 07/30/21 Range/Units 08:57 Sodium 136 L (137-145) mmol/L Potassium 4.1 (3.6-5.0) mmol/L Chloride 100.4 (98-107) mmol/L Carbon Dioxide 23 (22-30) mmol/L BUN 7 (7-17) mg/dL Creatinine 0.6 (0.6-1.2) mg/dL Glucose 89 (65-100) mg/dL Calcium 8.9 (8.4-10.2) mg/dL AST 20 (5-40) units/L ALT 8 (7-56) units/L Alkaline Phosphatase 45 (35-129) units/L Total Protein 7.1 (6.3-8.2) g/dL Albumin 4.0 (3.9-5) g/dL - Imaging and Cardiology EKG: report reviewed Repolarization changes or abnormalities: nonspecific abnormality, ST segment, and/or T wave
--- NOTE | 2021-08-01 07:38 | Progress Note ---
Assessment and Plan Assessment and plan: #NSTEMI #Elevated troponin -troponin 0.279 -> 0.265 -> 0.189 -ASA + atorvastatin and metoprolol 25mg BID -A1C 5.3% -TTE: LVEF 60%, small segmental apical inferoseptal hypokinesis -Cardiology following, assistance appreciated -plan for Cath Tomorrow, NPO after midnight Disposition Plan: continue medical management Total Time Spent with Patient (Minutes): 20 minutes History Interval history: No acute events overnight. Has not had chest pain since admission. Hospitalist Physical - Physical exam Narrative exam: GENERAL: Well-developed well-nourished. Sitting up in bed, no acute distress. CHEST/LUNGS: CTAB on room air HEART/CARDIOVASCULAR: RRR. No murmur, rubs or gallops appreciated. ABDOMEN: +BS. NT/ND. EXTREMITIES: No cyanosis, clubbing or edema. PSYCH: Cooperative. - Constitutional Vitals: Temp Pulse Resp BP Pulse Ox 98.6 F 72 18 131/68 99 08/01/21 00:29 08/01/21 00:29 08/01/21 00:29 08/01/21 00:29 07/31/21 20:00 General appearance: Present: no acute distress HEART Score - HEART Score EKG: Non-specific Age: 45-65 Risk factors: 1-2 risk factors Troponin: Troponin T 0.198 ng/mL (0.00-0.029) H* 07/30/21 08:57 Troponin: < normal limit - Critical Actions Critical Actions: 4-6 pts:12-16.6% risk of adverse cardiac event. Should be admitted Results - Labs CBC & Chem 7: 07/30/21 08:57 08/01/21 04:00 Labs: Laboratory Last Values WBC 6.3 K/mm3 (4.5-11.0) 07/30/21 08:57 RBC 4.29 M/mm3 (3.65-5.03) 07/30/21 08:57 Hgb 11.9 gm/dl (10.1-14.3) 07/30/21 08:57 Hct 36.6 % (30.3-42.9) 07/30/21 08:57 MCV 85 fl (79-97) 07/30/21 08:57 MCH 28 pg (28-32) 07/30/21 08:57 MCHC 32 % (30-34) 07/30/21 08:57 RDW 13.0 % (13.2-15.2) L 07/30/21 08:57 Plt Count 246 K/mm3 (140-440) 07/30/21 08:57 Lymph % (Auto) 27.6 % (13.4-35.0) 07/30/21 08:57 [place] % (Auto) 10.7 % (0.0-7.3) H 07/30/21 08:57 Eos % (Auto) 1.2 % (0.0-4.3) 07/30/21 08:57 Baso % (Auto) 0.7 % (0.0-1.8) 07/30/21 08:57 Lymph # (Auto) 1.7 K/mm3 (1.2-5.4) 07/30/21 08:57 [place] # (Auto) 0.7 K/mm3 (0.0-0.8) 07/30/21 08:57 Eos # (Auto) 0.1 K/mm3 (0.0-0.4) 07/30/21 08:57 Baso # (Auto) 0.0 K/mm3 (0.0-0.1) 07/30/21 08:57 Seg Neutrophils % 59.8 % (40.0-70.0) 07/30/21 08:57 Seg Neutrophils # 3.8 K/mm3 (1.8-7.7) 07/30/21 08:57 PT 13.1 Sec. (12.2-14.9) 07/29/21 11:40 INR 0.89 (0.87-1.13) 07/29/21 11:40 Sodium 136 mmol/L (137-145) L 07/30/21 08:57 Potassium 4.1 mmol/L (3.6-5.0) 07/30/21 08:57 Chloride 100.4 mmol/L (98-107) 07/30/21 08:57 Carbon Dioxide 23 mmol/L (22-30) 07/30/21 08:57 Anion Gap 17 mmol/L 07/30/21 08:57 BUN 7 mg/dL (7-17) 07/30/21 08:57 Creatinine 0.6 mg/dL (0.6-1.2) 07/30/21 08:57 Estimated GFR > 60 ml/min 07/30/21 08:57 BUN/Creatinine Ratio 12 % 07/30/21 08:57 Glucose 89 mg/dL (65-100) 07/30/21 08:57 Calcium 8.9 mg/dL (8.4-10.2) 07/30/21 08:57 Total Bilirubin 0.40 mg/dL (0.1-1.2) 07/30/21 08:57 AST 20 units/L (5-40) 07/30/21 08:57 ALT 8 units/L (7-56) 07/30/21 08:57 Alkaline Phosphatase 45 units/L (35-129) 07/30/21 08:57 Troponin T 0.198 ng/mL (0.00-0.029) H* 07/30/21 08:57 Total Protein 7.1 g/dL (6.3-8.2) 07/30/21 08:57 Albumin 4.0 g/dL (3.9-5) 07/30/21 08:57 Albumin/Globulin Ratio 1.3 % 07/30/21 08:57 Triglycerides 77 mg/dL (2-149) 07/29/21 14:48 Cholesterol 192 mg/dL (50-199) 07/29/21 14:48 LDL Cholesterol Direct 125 mg/dL (50-130) 07/29/21 14:48 HDL Cholesterol 53 mg/dL (40-59) 07/29/21 14:48 Cholesterol/HDL Ratio 3.62 % 07/29/21 14:48 HCG, Qual Negative (Negative) 07/29/21 11:40 [place]/IV: Voiding Method Toilet Active Medications - Current Medications Current Medications: Generic Name Dose Route Start Last Admin Trade Name Freq PRN Reason Stop Dose Admin Acetaminophen 650 mg 07/29/21 16:58 07/29/21 17:12 Acetaminophen 325 Mg Tab PO 650 mg Q4H PRN Administration Pain MILD(1-3)/Fever >100.5/CHO Aspirin 81 mg 07/30/21 10:00 07/31/21 09:05 Aspirin 81 Mg Tab Chew PO 81 mg QDAY MOHSEN Administration Atorvastatin Calcium 40 mg 07/30/21 22:00 07/31/21 21:51 Atorvastatin 40 Mg Tab PO 40 mg QHS MOHSEN Administration Famotidine 20 mg 07/30/21 22:00 07/31/21 21:51 Famotidine 20 Mg Tab PO Not Given BID [facility] Heparin Sodium (Porcine) 5,000 unit 07/29/21 22:00 07/31/21 21:21 Heparin 5,000 Unit/1 Ml Vial SUB-Q Not Given Q12HR MOHSEN Hydromorphone HCl 0.5 mg 07/29/21 16:58 Hydromorphone 1 Mg/1 Ml Inj IV Q3H PRN Pain , Severe (7-10) Metoclopramide HCl 10 mg 07/29/21 16:58 Metoclopramide 10 Mg/2 Ml Inj IV Q6H PRN Nausea And Vomiting Metoprolol Succinate 25 mg 07/30/21 10:00 07/31/21 09:05 Metoprolol Succinate Xl 25 Mg Tab PO 25 mg QDAY MOHSEN Administration Ondansetron HCl 4 mg 07/29/21 16:58 Ondansetron 4 Mg/2 Ml Inj IV Q8H PRN Nausea And Vomiting Oxycodone/Acetaminophen 1 tab 07/29/21 16:58 07/29/21 18:47 Oxycodone /Acetaminophen 5-325mg Tab PO 1 tab Q6H PRN Administration Pain, Moderate (4-6) Sodium Chloride 10 ml 07/29/21 16:58 Sodium Chloride 0.9% 10 Ml Flush Syringe IV PRN PRN LINE FLUSH Sodium Chloride 10 ml 07/29/21 22:00 07/31/21 21:51 Sodium Chloride 0.9% 10 Ml Flush Syringe IV 10 ml BID MOHSEN Administration
[2021-08-01 08:32] LABS: Blood Urea Nitrogen 9 mg/dL (7-17); Calcium 8.5 mg/dL (8.4-10.2); Hemolysis Index 2
[2021-08-01 08:34] LABS: BUN/Creatinine Ratio 15
[2021-08-01] MEDS: HEPARIN 5,000 UNIT/1 ML VIAL SUB-Q SCH ×2 (10:21→21:32)
--- NOTE | 2021-08-01 12:10 | Electrocardiograph Report ---
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
[2021-08-01] MEDS: FAMOTIDINE 20 MG TAB PO SCH ×2 (12:40→21:32)
[2021-08-01] MEDS: METOPROLOL SUCCINATE XL 25 MG TAB PO SCH (13:26)
[2021-08-01] MEDS: ASPIRIN 81 MG TAB CHEW PO SCH (13:26)
[2021-08-01] MEDS ORDERED: SODIUM CHLORIDE 0.9% 500 ML 500 ML IV SCH (16:00)
--- NOTE | 2021-08-01 17:19 | Progress Note ---
Subjective Date of service: 08/01/21 Interval history: No chest pain this AM Echo Ef 55%, apical inferoseptal HK Impression Echo Ef 55% with small segmental wall motion abnl, apical inferoseptal SSCP, intetmittent dating back to last week c/w angina Troponin elevation c/w CAD, NSTEMI ECG NSR nonspecific inferior and lateral changes, minimal FH CAD, brother recently had stents LDL 125 Plan cancelled stress test advise diagnostic cardiac cath to evaluate symptoms, based on presentation high prob for CAD. ASA, statin, BB for now, she is asymptomatic at present Objective Vital Signs Temp Pulse Pulse Resp BP BP Pulse Ox 08/01/21 00:29 98.6 F 72 18 131/68 07/31/21 22:00 78 07/31/21 20:00 91 H 14 99 07/31/21 19:32 97.8 F 89 20 134/88 97 - Physical Examination General: Appears Well HEENT: Positive: PERRL Neck: Positive: neck supple Cardiac: Positive: Reg Rate and Rhythm, S1/S2 Lungs: Positive: Normal Exam Neuro: Positive: Grossly Intact Abdomen: Positive: Unremarkable. Negative: Pulsations/Bruits Extremities: Absent: edema - Labs and Meds Comprehensive Metabolic Panel 08/01/21 Range/Units 04:00 Sodium 138 (137-145) mmol/L Potassium 4.3 (3.6-5.0) mmol/L Chloride 102.8 (98-107) mmol/L Carbon Dioxide 23 (22-30) mmol/L BUN 9 (7-17) mg/dL Creatinine 0.6 (0.6-1.2) mg/dL Glucose 103 H (65-100) mg/dL Calcium 8.5 (8.4-10.2) mg/dL - Imaging and Cardiology EKG: report reviewed Repolarization changes or abnormalities: nonspecific abnormality, ST segment, and/or T wave
[2021-08-02 08:02] LABS: Blood Urea Nitrogen 7 mg/dL (7-17); Calcium 8.7 mg/dL (8.4-10.2); Hemolysis Index 3
[2021-08-02 08:03] LABS: BUN/Creatinine Ratio 12
[2021-08-02] MEDS ORDERED: SODIUM CHLORIDE 0.9% 500 ML 500 ML ONE (08:36)
[2021-08-02] MEDS: ASPIRIN 81 MG TAB CHEW PO SCH ×2 (08:42→12:10)
[2021-08-02] MEDS ORDERED: LIDOCAINE (2%) 20 MG/1 ML VIAL 20 ML MDV INFILTRATI ONE ×2 (08:49→09:29)
[2021-08-02] MEDS ORDERED: HEPARIN 10,000 UNITS/10 ML VIAL ONE ×2 (08:49→10:35)
[2021-08-02] MEDS ORDERED: VERAPAMIL 5 MG/2 ML INJ ONE (08:49)
[2021-08-02] MEDS ORDERED: HEPARIN/NS 5000 UNIT/500ML 1,000 ML IR ONE (08:49)
[2021-08-02] MEDS ORDERED: MIDAZOLAM 2 MG/2 ML INJ ONE (08:50)
[2021-08-02] MEDS ORDERED: fentaNYL 100 MCG/2 ML INJ ONE (08:50)
[2021-08-02] MEDS ORDERED: SODIUM CHLORIDE 0.9% 500 ML 500 ML IV SCH (09:00)
[2021-08-02] MEDS ORDERED: NITROGLYCERIN SYRINGE 3 ML ONE (09:03)
[2021-08-02] MEDS ORDERED: VERAPAMIL 5 MG/2 ML INJ IV ONE ×2 (09:23→09:32)
[2021-08-02] MEDS ORDERED: NITROGLYCERIN 600 MCG/3 ML SYRINGE UD ONE ×2 (09:23→09:32)
[2021-08-02] MEDS ORDERED: HEPARIN 10,000 UNITS/10 ML VIAL IV ONE ×4 (09:23→10:44)
--- NOTE | 2021-08-02 10:17 | Cardiac Catherization Report ---
DATE OF PROCEDURE: 08/02/2021 CORONARY ANGIOGRAM ORDERING PHYSICIAN: Dr. Trevor Terrell. INDICATION: Unstable angina. PROCEDURES PERFORMED: 1. Selective left and right coronary angiography. 2. Left ventriculography. DESCRIPTION OF PROCEDURE: After obtaining written consent, the patient was draped using sterile technique, 2% lidocaine was injected into the right wrist. A 6-Tanzanian vascular sheath was inserted into the right radial artery. A 6-[place] JL3.5 catheter was used to selectively engage the left coronary artery. A 6-[place] JR4 catheter was used to selectively engage the right coronary artery. A 6-[place] JR4 catheter was used to hand inject the left ventriculogram. COMPLICATIONS: No complications occurred during the procedure. TOTAL SEDATION TIME: 23 minutes. Physician/patient face to face sedation start time 9:19 a.m. Physician/patient face to face sedation stop time is 9:42 a.m. Total sedation administered was 1 mg of IV Versed and 50 mcg of IV fentanyl. HEMODYNAMICS: Aortic pressure was 101/71. LV systolic pressure 108 mmHg. LV end-diastolic pressure 13 mmHg. No significant gradient noted across left ventricular outflow tract. CARDIAC STRUCTURES: The left ventricle is normal in size. The left ventricular ejection fraction is estimated at 55% with normal wall motion. CORONARY ANATOMY: 1. This is a right dominant circulation. 2. The left main is angiographically normal. 3. The LAD has evidence of a 90% tubular mid LAD stenosis. Otherwise, the remaining segments are angiographically normal. 4. The left circumflex artery is angiographically normal. 5. The right coronary artery is angiographically normal. The right coronary artery is a dominant vessel. IMPRESSION: 1. Single vessel obstructive disease with a 90% mid tubular LAD stenosis. 2. Normal left ventricular ejection fraction. 3. LVEDP measured at 13 mmHg. RECOMMENDATIONS: Proceed with percutaneous coronary intervention to the mid LAD. TID: [id number] RECEIPT: [id number] MARIE/NEELA
[2021-08-02] MEDS ORDERED: TICAGRELOR 90 MG TAB ONE (10:33)
[2021-08-02] MEDS ORDERED: ALUM-MAG HYDROXIDE-SIMETHICONE 200-200-20MG/5ML ORAL LIQD 30 ML ONE (10:33)
[2021-08-02] MEDS ORDERED: HYDROcodone/ACETAMINOPHEN 5-325 MG TAB PO PRN (11:30)
--- NOTE | 2021-08-02 11:35 | Progress Note ---
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 Overnight observation post PCI. If asymptomatic, may go home tomorrow morning. Subjective Date of service: 08/02/21 Principal diagnosis: Non-STEMI Interval history: Patient underwent a coronary angiogram along with PCI of the proximal and mid LAD without complications. Objective Vital Signs Temp Pulse Resp BP Pulse Ox 08/02/21 07:42 98 08/02/21 00:10 97.5 F L 76 14 116/76 97 08/01/21 22:00 76 08/01/21 20:00 98 08/01/21 19:29 97.9 F 81 16 113/74 97 - Physical Examination General: Appears Well HEENT: Positive: PERRL Neck: Positive: neck supple Cardiac: Positive: Reg Rate and Rhythm Lungs: Positive: Normal Exam Neuro: Positive: Grossly Intact Abdomen: Positive: Unremarkable. Negative: Pulsations/Bruits Extremities: Absent: edema - Labs and Meds Comprehensive Metabolic Panel 08/02/21 Range/Units 07:07 Sodium 139 (137-145) mmol/L Potassium 4.4 (3.6-5.0) mmol/L Chloride 103.3 (98-107) mmol/L Carbon Dioxide 25 (22-30) mmol/L BUN 7 (7-17) mg/dL Creatinine 0.6 (0.6-1.2) mg/dL Glucose 94 (65-100) mg/dL Calcium 8.7 (8.4-10.2) mg/dL - Imaging and Cardiology EKG: report reviewed Repolarization changes or abnormalities: nonspecific abnormality, ST segment, and/or T wave
--- NOTE | 2021-08-02 11:59 | Progress Note ---
Assessment and Plan Assessment and plan: #NSTEMI #Elevated troponin #Coronary Artery Disease -troponin 0.279 -> 0.265 -> 0.189 -ASA + atorvastatin and metoprolol 25mg BID -A1C 5.3% -TTE: LVEF 60%, small segmental apical inferoseptal hypokinesis -Cardiac cath today: 90% stenosis in mid LAD; 2 DONALD placed -start brilinta -Cardiology following, assistance appreciatedt Disposition Plan: Home tomorrow Total Time Spent with Patient (Minutes): 20 minutes History Interval history: No acute events overnight. Patient post cardiac catheterization. Has pain at wrist, no other complaints at this time. Hospitalist Physical - Physical exam Narrative exam: GENERAL: Well-developed well-nourished. Sitting up in bed, no acute distress. CHEST/LUNGS: CTAB on room air HEART/CARDIOVASCULAR: RRR. No murmur, rubs or gallops appreciated. ABDOMEN: +BS. NT/ND. EXTREMITIES: No cyanosis, clubbing or edema. PSYCH: Cooperative. - Constitutional Vitals: Temp Pulse Resp BP Pulse Ox 97.5 F L 76 14 116/76 98 08/02/21 00:10 08/02/21 00:10 08/02/21 00:10 08/02/21 00:10 08/02/21 07:42 General appearance: Present: no acute distress HEART Score - HEART Score EKG: Non-specific Age: 45-65 Risk factors: 1-2 risk factors Troponin: Troponin T 0.198 ng/mL (0.00-0.029) H* 07/30/21 08:57 Troponin: < normal limit - Critical Actions Critical Actions: 4-6 pts:12-16.6% risk of adverse cardiac event. Should be admitted Results - Labs CBC & Chem 7: 07/30/21 08:57 08/03/21 04:30 Labs: Laboratory Last Values WBC 6.3 K/mm3 (4.5-11.0) 07/30/21 08:57 RBC 4.29 M/mm3 (3.65-5.03) 07/30/21 08:57 Hgb 11.9 gm/dl (10.1-14.3) 07/30/21 08:57 Hct 36.6 % (30.3-42.9) 07/30/21 08:57 MCV 85 fl (79-97) 07/30/21 08:57 MCH 28 pg (28-32) 07/30/21 08:57 MCHC 32 % (30-34) 07/30/21 08:57 RDW 13.0 % (13.2-15.2) L 07/30/21 08:57 Plt Count 246 K/mm3 (140-440) 07/30/21 08:57 Lymph % (Auto) 27.6 % (13.4-35.0) 07/30/21 08:57 Centre % (Auto) 10.7 % (0.0-7.3) H 07/30/21 08:57 Eos % (Auto) 1.2 % (0.0-4.3) 07/30/21 08:57 Baso % (Auto) 0.7 % (0.0-1.8) 07/30/21 08:57 Lymph # (Auto) 1.7 K/mm3 (1.2-5.4) 07/30/21 08:57 Centre # (Auto) 0.7 K/mm3 (0.0-0.8) 07/30/21 08:57 Eos # (Auto) 0.1 K/mm3 (0.0-0.4) 07/30/21 08:57 Baso # (Auto) 0.0 K/mm3 (0.0-0.1) 07/30/21 08:57 Seg Neutrophils % 59.8 % (40.0-70.0) 07/30/21 08:57 Seg Neutrophils # 3.8 K/mm3 (1.8-7.7) 07/30/21 08:57 PT 13.1 Sec. (12.2-14.9) 07/29/21 11:40 INR 0.89 (0.87-1.13) 07/29/21 11:40 Sodium 139 mmol/L (137-145) 08/02/21 07:07 Potassium 4.4 mmol/L (3.6-5.0) 08/02/21 07:07 Chloride 103.3 mmol/L (98-107) 08/02/21 07:07 Carbon Dioxide 25 mmol/L (22-30) 08/02/21 07:07 Anion Gap 15 mmol/L 08/02/21 07:07 BUN 7 mg/dL (7-17) 08/02/21 07:07 Creatinine 0.6 mg/dL (0.6-1.2) 08/02/21 07:07 Estimated GFR > 60 ml/min 08/02/21 07:07 BUN/Creatinine Ratio 12 % 08/02/21 07:07 Glucose 94 mg/dL (65-100) 08/02/21 07:07 POC Glucose 105 mg/dL (70-105) 08/01/21 21:53 Hemoglobin A1c 5.3 % (4-6) 08/01/21 04:00 Calcium 8.7 mg/dL (8.4-10.2) 08/02/21 07:07 Total Bilirubin 0.40 mg/dL (0.1-1.2) 07/30/21 08:57 AST 20 units/L (5-40) 07/30/21 08:57 ALT 8 units/L (7-56) 07/30/21 08:57 Alkaline Phosphatase 45 units/L (35-129) 07/30/21 08:57 Troponin T 0.198 ng/mL (0.00-0.029) H* 07/30/21 08:57 Total Protein 7.1 g/dL (6.3-8.2) 07/30/21 08:57 Albumin 4.0 g/dL (3.9-5) 07/30/21 08:57 Albumin/Globulin Ratio 1.3 % 07/30/21 08:57 Triglycerides 77 mg/dL (2-149) 07/29/21 14:48 Cholesterol 192 mg/dL (50-199) 07/29/21 14:48 LDL Cholesterol Direct 125 mg/dL (50-130) 07/29/21 14:48 HDL Cholesterol 53 mg/dL (40-59) 07/29/21 14:48 Cholesterol/HDL Ratio 3.62 % 07/29/21 14:48 HCG, Qual Negative (Negative) 07/29/21 11:40 [place]/IV: Voiding Method Toilet Active Medications - Current Medications Current Medications: Generic Name Dose Route Start Last Admin Trade Name Freq PRN Reason Stop Dose Admin Acetaminophen 650 mg 07/29/21 16:58 07/29/21 17:12 Acetaminophen 325 Mg Tab PO 650 mg Q4H PRN Administration Pain MILD(1-3)/Fever >100.5/CHO Hydrocodone Bitart/Acetaminophen 1 each 08/02/21 11:30 Hydrocodone/Acetaminophen 5-325 Mg Tab PO Q4H PRN Pain, Moderate (4-6) Aspirin 81 mg 07/30/21 10:00 08/02/21 08:42 Aspirin 81 Mg Tab Chew PO 81 mg QDAY MOHSEN Administration Atorvastatin Calcium 40 mg 07/30/21 22:00 08/01/21 21:33 Atorvastatin 40 Mg Tab PO 40 mg QHS MOHSEN Administration Famotidine 20 mg 07/30/21 22:00 08/01/21 21:32 Famotidine 20 Mg Tab PO Not Given BID MOHSEN Heparin Sodium (Porcine) 5,000 unit 07/29/21 22:00 08/01/21 21:32 Heparin 5,000 Unit/1 Ml Vial SUB-Q Not Given Q12HR MOHSEN Hydromorphone HCl 0.5 mg 07/29/21 16:58 Hydromorphone 1 Mg/1 Ml Inj IV Q3H PRN Pain , Severe (7-10) Sodium Chloride 500 mls @ 50 mls/hr 08/02/21 09:00 08/02/21 08:43 Nacl 0.9% 500 Ml IV 08/02/21 16:00 50 mls/hr DIRECT MOHSEN Administration Sodium Chloride 1,000 mls @ 100 mls/hr 08/02/21 12:00 Nacl 0.9% 1000 Ml IV 08/02/21 12:01 DIRECT MOHSEN Lactated Ringer's 1,000 mls @ 100 mls/hr 08/02/21 12:00 Lactated Ringers IV 08/02/21 21:59 DIRECT MOHSEN Metoclopramide HCl 10 mg 07/29/21 16:58 Metoclopramide 10 Mg/2 Ml Inj IV Q6H PRN Nausea And Vomiting Metoprolol Succinate 25 mg 07/30/21 10:00 08/01/21 13:26 Metoprolol Succinate Xl 25 Mg Tab PO 25 mg QDAY MOHSEN Administration Ondansetron HCl 4 mg 07/29/21 16:58 Ondansetron 4 Mg/2 Ml Inj IV Q8H PRN Nausea And Vomiting Oxycodone/Acetaminophen 1 tab 07/29/21 16:58 07/29/21 18:47 Oxycodone /Acetaminophen 5-325mg Tab PO 1 tab Q6H PRN Administration Pain, Moderate (4-6) Sodium Chloride 10 ml 07/29/21 16:58 Sodium Chloride 0.9% 10 Ml Flush Syringe IV PRN PRN LINE FLUSH Sodium Chloride 10 ml 07/29/21 22:00 08/01/21 21:33 Sodium Chloride 0.9% 10 Ml Flush Syringe IV 10 ml BID MOHSEN Administration Ticagrelor 90 mg 08/03/21 10:00 Ticagrelor 90 Mg Tab PO BID MOHSEN Tramadol HCl 50 mg 08/02/21 12:00 Tramadol 50 Mg Tab PO Q4H PRN Pain, Mild (1-3)
[2021-08-02] MEDS ORDERED: SODIUM CHLORIDE 0.9% 1000 ML 1,000 ML IV SCH (12:00)
[2021-08-02] MEDS ORDERED: traMADol 50 MG TAB PO PRN (12:00)
[2021-08-02] MEDS ORDERED: LACTATED RINGERS 1,000 ML IV SCH (12:00)
[2021-08-02] MEDS: FAMOTIDINE 20 MG TAB PO SCH ×2 (12:10→21:02)
[2021-08-02] MEDS: HEPARIN 5,000 UNIT/1 ML VIAL SUB-Q SCH ×2 (12:10→21:02)
[2021-08-02] MEDS: METOPROLOL SUCCINATE XL 25 MG TAB PO SCH (12:10)
--- NOTE | 2021-08-02 12:35 | Cardiac Catherization Report ---
DATE OF SERVICE: 08/02/2021 INDICATIONS: The patient is a 50-year-old female, who was admitted with a non-STEMI and chest pain of 1-week duration. Troponins were found to be abnormal, consistent with non-STEMI. Underwent cardiac catheterization performed by Dr. Del Castillo, which showed a long mid LAD lesion, felt to be culprit lesion for her symptoms and non-STEMI. Hence, a coronary intervention being planned at the same time. The patient is willing to proceed with intervention. She is aware of the procedure, potential complications, and alternatives of therapy available. DESCRIPTION OF PROCEDURE: The patient has indwelling 5-Filipino slender sheath in the right wrist area. The patient was given heparin as anticoagulant. A 6-Filipino EBU 3.5 guiding catheter advanced and engaged the left coronary artery. Angiogram showed a lesion in the mid LAD, which is long and smooth. Rest of the coronaries has been normal and LV function being normal. A 0.014 inch [place] guidewire was advanced into the LAD without difficulty. Subsequently, lesion was dilated with 2.5 x 15 mm [place] balloon. This resulted in dissection initially in the same area where the balloon was dilated, but subsequently without any further intervention,dissection extended into the proximal part of the lesion. Initial stent 2.5 x 22 mm Resolute Alvin stent was advanced through the lesion and dilated up to 8 atmospheres with good result. However, proximal dissection was noted almost up to the septal branch. Hence, a second stent 2.5 x 12 mm Resolute [place] stent was inserted up to 9 atmospheres. This resulted in sealing of the proximal dissection. After application of the second stent, there is no proximal or distal dissection. No further intervention was performed. 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 The patient tolerated the procedure well. No significant chest pain or hemodynamic changes noted during the procedure. No arrhythmias were noted. Final angiograms after removing the guidewire showed a widely patent vessel with no proximal or distal dissection, perforation, or embolization. The patient is asymptomatic of any chest pain. Rhythm has been stable. The patient was sedated with IV Versed and fentanyl prior to her original angiography starting at 9:19 a.m. Her sedation per my procedure started at 9:55 a.m. and ended at 10:27 a.m. At the end of the procedure, the patient is communicating normally with normal oxygen saturations and no focal deficits. The patient was transferred to the room in stable condition. At the end of the procedure, ACT was found to be 2046 and received 2000 units of extra heparin. The patient received 180 mg of Brilinta. FINAL IMPRESSION: Successful balloon angioplasty and stent placement of the mid LAD lesion. There is evidence of dissection proximal to the initial stent; however, this was covered with a second stent. 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 However, final result was very good with no complications. Hemodynamically stable. The patient will be continued on aspirin and Brilinta for the next one year. It is to be noted that the patient's rest of the coronaries are normal angiographically. LV function was normal. Discussed with Dr. Del Castillo, who is primary smearer for this patient. TID: [id number] RECEIPT: [id number] ALPESH/HEIDI MOHAN
[2021-08-02] MEDS: oxyCODONE /ACETAMINOPHEN 5-325MG TAB PO PRN ×2 (13:54→20:49)
[2021-08-03 06:43] LABS: Blood Urea Nitrogen 7 mg/dL (7-17); Calcium 8.8 mg/dL (8.4-10.2); Hemolysis Index 1
[2021-08-03 06:47] LABS: BUN/Creatinine Ratio 12
[2021-08-03 08:52] VITALS: BP 107/68
[2021-08-03] MEDS ORDERED: TICAGRELOR 90 MG TAB PO SCH (10:00)
[2021-08-03] MEDS: METOPROLOL SUCCINATE XL 25 MG TAB PO SCH (11:07)
[2021-08-03] MEDS: HEPARIN 5,000 UNIT/1 ML VIAL SUB-Q SCH ×2 (11:07→11:11)
[2021-08-03] MEDS: FAMOTIDINE 20 MG TAB PO SCH (11:07)
[2021-08-03] MEDS: ASPIRIN 81 MG TAB CHEW PO SCH (11:07)
--- NOTE | 2021-08-03 11:09 | Electrocardiograph Report ---
[facility] Test Date: 2021-08-02 Test Time: 07:41:26 Pat Name: DRAKE MARINELIL Department: Room: A468 1 Gender: F Resident Service Coordinator: DAWSON : 1970 Requested By: CAROLYN RODRIGUEZ Order Number: [id number] Reading MD: Frank Hernandez Measurements Intervals [place] Rate: 69 P: 67 HI: 162 QRS: 23 QRSD: 87 T: -40 QT: 383 QTc: 409 Interpretive Statements Sinus rhythm Anteroseptal infarct, age indeterminate Compared to ECG 07/30/2021 12:42:42 Myocardial infarct finding now present T-wave abnormality no longer present Possible ischemia no longer present Electronically Signed On 08-03-2021 11:09:17 EST by Frank Hernandez
--- NOTE | 2021-08-03 12:48 | Progress Note ---
Assessment and Plan Non-ST elevation myocardial infarction s/p PCI of the mid LAD with 2 drug-eluting stents. Normal left ventricular ejection fraction by echo and by LV gram. Recommendations: Continue aspirin 81 mg daily, ticagrelor 90 mg twice daily, atorvastatin 40 mg daily and metoprolol XL. Stable, cardiac garcia, for discharge home today. Patient will follow up in our office within 3-5 days. Subjective Date of service: 08/03/21 Principal diagnosis: Non-STEMI Interval history: Patient appears well. Currently, she is chest pain free. Right radial cath site is intact. Objective Vital Signs Temp Pulse Resp BP Pulse Ox 08/03/21 08:45 97.7 F 88 16 107/68 100 08/03/21 03:34 97.8 F 93 H 12 123/64 99 08/02/21 23:33 97.5 F L 73 12 110/68 97 08/02/21 20:00 98 08/02/21 19:37 97.8 F 91 H 16 109/62 97 - Physical Examination General: Appears Well HEENT: Positive: PERRL Neck: Positive: neck supple Cardiac: Positive: Reg Rate and Rhythm Lungs: Positive: Normal Breath Sounds Neuro: Positive: Grossly Intact Abdomen: Negative: Pulsations/Bruits Incision: Cardiac Cath Site Extremities: Absent: edema - Labs and Meds Comprehensive Metabolic Panel 08/03/21 Range/Units 04:30 Sodium 138 (137-145) mmol/L Potassium 4.0 (3.6-5.0) mmol/L Chloride 100.3 (98-107) mmol/L Carbon Dioxide 24 (22-30) mmol/L BUN 7 (7-17) mg/dL Creatinine 0.6 (0.6-1.2) mg/dL Glucose 93 (65-100) mg/dL Calcium 8.8 (8.4-10.2) mg/dL Repolarization changes or abnormalities: nonspecific abnormality, ST segment, and/or T wave
[2021-08-03] MEDS ORDERED: CLOPIDOGREL 75 MG TAB PO SCH (13:00)
--- NOTE | 2021-08-03 18:59 | Discharge Summary ---
Providers - Providers Date of Admission: 08/02/21 12:50 Date of discharge: 08/03/21 Attending physician: CONNIE MOELLER MD 07/30/21 07:45 Consult to Physician [CONS] Routine Comment: Consulting Provider: OTIS KUMAR Physician Instructions: Reason For Exam: ACS r/o 08/02/21 11:06 Consult to Cardiac Rehabilitation [CONS] Routine Reason For Exam: Cardiac Rehab Evaluation Primary care physician: GLASS PRESSER Hospitalization Reason for admission: NSTEMI Condition: Stable Pertinent studies: Reviewed. Procedures: Left heart catheterization Hospital course: Patient is a 50-year-old female with no significant past medical history who presented with left-sided chest pain rated 46/10 that was found to be NSTEMI in the ED. Patient underwent TTE revealing an EF of 60% with small segmental apical inferior septal hypokinesis. Cardiology was consulted, and the patient underwent left heart catheterization (via right wrist) on 08/02/2021 that revealed 90% stenosis in the mid LAD requiring the placement of 2 drug-eluting stents. Patient was initiated on ASA 81 mg daily, atorvastatin 40 mg daily, Brilinta 90 mg twice daily, and metoprolol tartrate 25 mg twice daily. Due to financial limitations, the patient was transitioned to Plavix 75 mg daily, and she was counseled about the importance of medication compliance in the setting of recent PCI placement. The patient expressed understanding. The patient will follow with cardiology in clinic in approximately 3-5 days. Patient was safely discharged home. Disposition: 01 HOME / SELF CARE / HOMELESS Final Discharge Diagnosis (Prints w/discharge instructions): NSTEMI, coronary artery disease status post drug-eluting stent placement Time spent for discharge: 45 minutes Core Measure Documentation - Palliative Care Palliative Care/ Comfort Measures: Not Applicable - Core Measures Any of the following diagnoses?: acute NE - VTE Discharge Requirements Deep Vein Thrombosis/Pulmonary Embolism Present on Admission: No Has pt received <5 days of overlap therapy or INR<2.0: No (Not indicated) Anticoagulant overlap therapy prescribed at discharge: No Contraindication No Overlap Therapy order at DC: Not Indicated - Acute NE Discharge Requirements Aspirin at discharge: Yes NYDIA/ARB for LVSD if EF <40%: Not Applicable Reason for no NYDIA/ARB: Medical contraindication (Not indicated) Beta ron at discharge: Yes Statin for LDL = or >100 mg/dl on DC: Yes - Heart Failure Discharge Requirements NYDIA/ARB for LVSD if EF <40%: Not Applicable Reason for no NYDIA/ARB: Medical contraindication (Not indicated) Beta ron at discharge: Yes - Stroke Discharge Requirements Statin for LDL = or >70 mg/dl on DC: Yes Anticoag for atrial fib/atrial flutter: Not Applicable Reason for no anticoag for AF/F on DC: Not Indicated Antithrombotic for ischemic stroke: No Reason for no antithrombotic on DC: Not Indicated Exam - Constitutional Vitals: Temp Pulse Resp BP Pulse Ox 97.7 F 88 16 107/68 99 08/03/21 08:45 08/03/21 10:00 08/03/21 08:45 08/03/21 08:45 08/03/21 10:00 General appearance: Present: no acute distress, well-nourished - EENT Eyes: Present: PERRL, EOM intact ENT: hearing intact, clear oral mucosa, dentition normal - Neck Neck: Present: supple, normal ROM - Respiratory Respiratory effort: normal Respiratory: bilateral: CTA - Cardiovascular Rhythm: regular Heart Sounds: Present: S1 & S2 - Extremities Extremities: no ischemia, pulses intact, pulses symmetrical, No edema, normal temperature, normal color, Full ROM Peripheral Pulses: within normal limits - Abdominal General gastrointestinal: Present: soft, non-tender, normal bowel sounds Female genitourinary: Present: deferred - Rectal Rectal Exam: deferred - Integumentary Integumentary: Present: clear, warm, dry - Musculoskeletal Musculoskeletal: strength equal bilaterally - Psychiatric Psychiatric: appropriate mood/affect, intact judgment & insight, memory intact, cooperative - Neurologic Neurologic: CNII-XII intact, moves all extremities - Allied Health Allied health notes reviewed: nursing Plan Care Plan Goals: Patient is safe for discharge home. Assessment: The patient presented with acute chest pain 2/2 NSTEMI. The patient underwent a left heart catherization that revealed 90% stenosis of mid-LAD requiring the placement of 2 drug-eluting stents. The patient was counseled on the importance of goal-directed care. The patient expressed understanding, and the patient is safe for discharge home. Follow up with: SUSAN MENDEZ MD [Staff Physician] - 3 Days EMPERATRIZ SCHNEIDER MD [Staff Physician] - 7 Days PRIMARY CARE, [Primary Care Provider] - 7 Days Forms: CardCath PCI D/C Instructions Prescriptions: AtorvaSTATin [Lipitor] 40 mg PO QHS 30 Days #30 tablet Aspirin [Aspirin BABY CHEW TAB] 81 mg PO QDAY 30 Days #30 tab.chew Metoprolol Xl [Metoprolol SUCCINATE ER TAB] 25 mg PO QDAY 30 Days #30 tablet Clopidogrel [Plavix] 75 mg PO QDAY 30 Days #30 tablet
--- NOTE | 2021-08-09 09:11 | Electrocardiograph Report ---
[facility] Test Date: 2021-07-30 Test Time: 12:42:42 Pat Name: DRAKE MARINELLI Department: Room: A468 1 Gender: F Registered Nurse Practitioner: DANA : 1970 Requested By: JARAD RICO Order Number: [id number] Reading MD: Arash Velasquez Measurements Intervals [place] Rate: 89 P: 48 SD: 161 QRS: 7 QRSD: 77 T: 87 QT: 384 QTc: 468 Interpretive Statements Sinus rhythm Low voltage, precordial leads Abnormal T, consider ischemia, anterior leads Compared to ECG 07/29/2021 11:43:49 Low QRS voltage now present Possible ischemia now present T-wave abnormality still present Electronically Signed On 08-09-2021 9:10:56 EST by Arash Velasquez
== END 2021-08-03 18:01 | disposition home or self-care (01) | DRG 247 ==
LOC: ED 11:16 → 4A 13:47 → OBSVTOIN 08-02 12:50
PROVIDERS: ADMIT Internal Medicine; ATTEND Student in an Organized Health Care Education/Training Program
PROC: 027035Z Dilation of Coronary Artery, One Artery with Two Drug-eluting Intraluminal Devices, Percutaneous Approach (ICD-10-PCS; principal; 2021-08-02)
PROC: 4A023N7 Measurement of Cardiac Sampling and Pressure, Left Heart, Percutaneous Approach (ICD-10-PCS; 2021-08-02)
PROC: B2111ZZ Fluoroscopy of Multiple Coronary Arteries using Low Osmolar Contrast (ICD-10-PCS; 2021-08-02)
PROC: B2151ZZ Fluoroscopy of Left Heart using Low Osmolar Contrast (ICD-10-PCS; 2021-08-02)
DX: I21.4 Non-ST elevation (NSTEMI) myocardial infarction (principal); I25.10 Atherosclerotic heart disease of native coronary artery without angina pectoris; I24.9 Acute ischemic heart disease, unspecified; Z82.49 Family history of ischemic heart disease and other diseases of the circulatory system; Z20.822 Contact with and (suspected) exposure to COVID-19
CPT/HCPCS: 36415; 71045; 80048; 80053; 80061; 82962; 83036; 84484; 84703; 85025; 85610; 92928; 93005; 93306; 93458; G0378; J1815; J3490; C1725; C1769; C1874; C1887; C1894; C9600; J1644; J2250; J3010; J7040; Q9967